=== PATIENT | female | born 1975 | race Caucasian/White ===

== ENCOUNTER → 2024-12-16 | Day surgery (SDC) | payer OTHER ==
[~2024-12-16] VITALS: Ht 175.3 cm; Wt 171.8 kg
[~2024-12-16] MED LIST: METF-1211 PO; PROPOFOL 1% 20 ML VIAL IVP ONE; ROSU10TA98 PO; SODIUM CHLORIDE 0.9% 1,000 ML ONE; TIRZ2.5P SQ
[2024-12-16] MEDS: SODIUM CHLORIDE 0.9% 1,000 ML IV ONE (09:25)
[2024-12-16 10:51] LABS: GLUCOMETER DEV NAME(LOC) SDS.; GLUCOSE,POINT OF CARE 118 MG/DL (70-110)
== END | disposition home or self-care (01) ==
LOC: SDS 08:44
PROVIDERS: ATTEND Internal Medicine
DX: Z12.11 Encounter for screening for malignant neoplasm of colon (principal); K63.5 Polyp of colon; K64.8 Other hemorrhoids; E11.9 Type 2 diabetes mellitus without complications; E78.00 Pure hypercholesterolemia, unspecified; E66.9 Obesity, unspecified; J45.909 Unspecified asthma, uncomplicated; G47.30 Sleep apnea, unspecified; F90.9 Attention-deficit hyperactivity disorder, unspecified type; Z79.84 Long term (current) use of oral hypoglycemic drugs; Z98.891 History of uterine scar from previous surgery; Z68.43 Body mass index [BMI] 50.0-59.9, adult; Z88.0 Allergy status to penicillin; Z91.040 Latex allergy status
CPT/HCPCS: 45385; 88305; 82962; 84703; J2704; J7030